=== PATIENT | male | born 1995 | race African-American/Black ===

== ENCOUNTER 2016-07-13 12:36 | Inpatient (IN) | payer OTHER ==
--- NOTE | ~2016-07-13 | DS ---
Unit #: [id number] #: [id number] Patient: KANDY MENON [id number] [facility] [address] [place] [address] [id number] I MR#: [id number] NAME: KANDY MENON ROOM: 66 Age: 20 Sex: M Admission Date: 07/13/2016 : 1995 Discharge Date: 07/17/2016 Attending Physician: Will Sauceda M.D. Primary Care Physician: Generic Doctor Not In System DISCHARGE SUMMARY REASON FOR ADMISSION Depression and suicidal ideation. DIAGNOSTIC STUDIES LABORATORY RESULTS: Unremarkable except ALT 50. HOSPITAL COURSE The patient was admitted to inpatient unit on 07/13/2016 and discharged on 07/17/2016. The patient was treated on the inpatient unit with group therapy, individual therapy, medication management, structured milieu, behavior modification. The patient responded well with the above modalities of treatment, compliant with medication. Subsequently, the patient was discharged with a plan to follow up in outpatient program. DISCHARGE MEDICATIONS Zoloft 50 mg at bedtime for depression, Zyprexa 20 mg at bedtime for psychosis, trazodone 50 mg at bedtime for sleep. DISCHARGE DIAGNOSES Psychiatric: 1. Mood disorder, not otherwise specified, F32.9. 2. Cocaine use disorder, moderate, F14.20. Secondary diagnosis: Mild intellectual deficit. Medical diagnoses: Obesity and glaucoma. Stressors: Psychosocial stressors. DISCHARGE INSTRUCTIONS The patient to follow up in outpatient clinic as per executive secretary social welfare. CONDITION ON DISCHARGE The patient was pleasant and cooperative. Denied any psychotic symptom or any suicidal ideation. PROGNOSIS Guarded. DIET AND ACTIVITY As tolerated. Dictated by... Unit #: [id number] #: [id number] Patient: KANDY MENON Rosas EdouardC/destinyl TD: 07/17/2016 23:11 JOB #: [id number] DISCHARGE SUMMARY Page 1 of 1 X Will Sauceda MD X DISCHARGE SUMMARY
--- NOTE | ~2016-07-13 | PA ---
Unit #: [id number] #: [id number] Patient: GULSHAN MENON [id number] [facility] [address] [place] [address] [id number] I MR#: [id number] NAME: GULSHAN MENON ROOM: P266 Age: 20 Sex: M Admission Date: 07/13/2016 : 1995 Date of Assessment: 07/14/2016 Attending Physician: Will Sauceda M.D. Admitting Physician: Will Sauceda M.D. Primary Care Physician: Generic Doctor Not In System PSYCHIATRIC ASSESSMENT INFORMANTS The patient reliability, poor; chart reliability, good. CHIEF COMPLAINT Depression and aggression. HISTORY OF PRESENT ILLNESS Mr. Gulshan Menon is a 20-year-old male, seen on 2[facility]. The patient was diagnosed with a full scale IQ of 60, has a history of previous treatment as a child. The patient reported that he saw his mother, who is living in street and asked him for money. The patient told that he had no money and he got mad at himself. The patient reported that he wants to by jumping off the building. The patient left home about 3 days ago. The patient reported using cocaine. The patient reported that he is in trouble for his guardian and feels that he cannot go home. The patient was voicing suicidal ideation. The patient reported last use of cocaine 3 days ago. The patient is a poor historian, withdrawn, isolative, flat affect. The patient was guarded and paranoid, received treatment through [facility]. The patient is needing inpatient admission at this time for psychiatric stabilization. PAST PSYCHIATRIC HISTORY Remarkable for history of previous treatment at [facility] at age 16; outpatient services through [facility] for history of behavioral issues, problem with the anger and depression. FAMILY HISTORY AND SOCIAL HISTORY The patient has a guardian, full scale IQ of 60. No known history of any abuse. MEDICAL HISTORY Remarkable for obesity and glaucoma. MEDICATION HISTORY None. ALLERGIES No known drug allergies. SUBSTANCE ABUSE HISTORY History of cocaine abuse, last use 3 days ago, 4 dollars worth. REVIEW OF SYSTEMS Unit #: [id number] #: [id number] Patient: GULSHAN MENON HEENT: Eyes, clear. Ears, nose, mouth, and throat; clear. CARDIOVASCULAR: Unremarkable. RESPIRATORY: Unremarkable. GI: Unremarkable. : Unremarkable. SKIN: Unremarkable. LYMPH NODE: Unremarkable. NEUROLOGIC: Unremarkable. ENDOCRINE: Unremarkable. HEMATOLOGIC: Unremarkable. ALLERGIC/IMMUNOLOGIC: Unremarkable. MUSCULOSKELETAL: Muscle strength and tone, no atrophy or abnormal movement. Gait normal. MENTAL STATUS EXAMINATION CONSTITUTIONAL: Measurement of vital signs; temperature 98.5, pulse 70, respirations 18, oxygen saturation 98%, and blood pressure 123/67. Height 6 feet 1 inch and weight 326 pounds. GENERAL APPEARANCE: The patient dressed casually. The patient did not show any facial deformity. MUSCULOSKELETAL: Please see above. PSYCHIATRIC EXAMINATION Description of speech; loud, circumstantial. Description of thought process, circumstantial. Description of association; guarded, paranoid. Description of abnormal psychotic thinking; guarded, paranoid, attending to internal stimuli, problem with anger, mood lability, depression, suicidal ideation. Description of the patient's judgment: Concerning everyday activity, poor. Social situation, poor. Concerning psychiatric condition, poor. Complete mental status examination; oriented in time, place, and person. Recent and remote memory, fair. Attention span and concentration, fair. Language; able to name object, repeat phrases. Fund of knowledge; aware of current event, passive vocabulary intact. Mood and affect, sad and dysphoric. Insight and judgment, fair to poor. ASSETS AND LIABILITIES Assets; the patient is articulate, able to take care of his ADL. Liabilities; history of depression, suicidal ideation. ADMITTING DIAGNOSES Psychiatric: 1. Mood disorder, not otherwise specified, F32.9. 2. Cocaine use disorder, moderate, F14.20. Secondary diagnosis: Mild intellectual deficit. Medical diagnoses: Obesity, glaucoma. Stressors: Psychosocial stressors. PSYCHIATRIC PLAN, TREATMENT GOAL, AND DISCHARGE PLAN 1. Advised to admit the patient on the inpatient unit. Provide safe, supportive, and structured environment. 2. Ordered labs; CBC, CMP, UA, and UDS. 3. Precaution for aggression and self-harm. The patient is to attend all the programing on the inpatient unit. If needed, consider medication. Treatment goal is to attain euthymic mood, gain insight into his problem, Unit #: [id number] #: [id number] Patient: GULSHAN MENON and learn coping skills. 4. Discharge plan: Plan is to stabilize the patient and consider followup in outpatient program. ESTIMATED LENGTH OF STAY 5 days. Dictated by... Rosas Edouard/cheri TD: 07/14/2016 23:10 JOB #: [id number] PSYCHIATRIC ASSESSMENT Page 1 of 1 X Will Sauceda MD X PSYCHIATRIC ASSESSMENT
--- NOTE | ~2016-07-13 | HP ---
Unit #: [id number] #: [id number] Patient: GULSHAN MENON [id number] [place] [address] [id number] I MR#: [id number] NAME: GULSHAN MENON ROOM: P266 Age: 20 Sex: M Admission Date: 07/13/2016 : 1995 Attending Physician: Will Sauceda M.D. Admitting Physician: Will Sauceda M.D. Primary Care Physician: Generic Doctor Not In System HISTORY AND PHYSICAL HISTORY OF PRESENT ILLNESS Gulshan is a 20-year-old admitted to [address] [place] [address] because of his drug use. He has spent his last paycheck on cocaine. PAST MEDICAL HISTORY 1. History of illicit substance abuse. 2. Morbid obesity. 3. MR. 4. History of glaucoma. PAST SURGICAL HISTORY 1. Bilateral eye surgery. 2. Oral. ALLERGIES No known drug allergies. SOCIAL HISTORY He does not smoke or use alcohol. Admits to using cocaine on frequent basis and also smokes Spice frequently. FAMILY HISTORY Medically noncontributory. REVIEW OF SYSTEMS He does not answer all questions appropriately. There are no reports of nausea, vomiting, or diarrhea. He has had no cough or increased temperature. CURRENT MEDICATIONS 1. Vistaril p.r.n. 2. Trazodone p.r.n. 3. Nicotine patch 14 mg every day. 4. Milk of magnesia p.r.n. 5. Maalox p.r.n. 6. Tylenol p.r.n. PHYSICAL EXAMINATION GENERAL: Alert, morbidly obese, and in no apparent distress. VITAL SIGNS: Blood pressure 122/66, heart rate 70, respirations 16, temperature 98.6, weight 326 pounds, and height 6 feet, 1 inch. SKIN: Warm and dry without rash or lesion. HEENT: Normocephalic. TMs not viewed. Oral and nasal passages clear. Unit #: [id number] #: [id number] Patient: GULSHAN MENON Conjunctivae clear. PERRLA. EOMs intact. NECK: Supple without lymphadenopathy or thyromegaly. HEART: Regular rate and rhythm without murmur. LUNGS: Clear. ABDOMEN: Soft, nontender. : Not done. EXTREMITIES: No evidence of cyanosis, clubbing or edema. Moves all without focal deficit. NEUROLOGICAL: Grossly within normal limits. Cranial Nerves: Unable to complete extended exam. He does move all extremities without focal deficit, hand senior php developer is equal, and gait is normal. IMPRESSION Psychiatric admission. RECOMMENDATIONS PSYCHIATRIC: Per psychiatrist. MEDICAL: I see no contraindication to participating in facility's activities. MEDICAL PROGNOSIS Good. MEDICAL CONDITION Stable. Dictated by... Sabrina Gaspar P.A.-C. for Rosas Groves/imelda TD: 07/14/2016 06:59 JOB #: [id number] HISTORY AND PHYSICAL Page 1 of 1 X Sabrina Gaspar X HISTORY AND PHYSICAL
--- NOTE | ~2016-07-13 | PN ---
Unit #: [id number] #: [id number] Patient: GULSHAN MENON [id number] [facility] [address] [place] [address] [id number] I MR#: [id number] NAME: GULSHAN MENON ROOM: 66 Age: 20 Sex: M Admission Date: 07/13/2016 : 1995 Attending Physician: Will Sauceda M.D. Admitting Physician: Will Sauceda M.D. Primary Care Physician: Generic Doctor Not In System [facility] PROGRESS NOTES DATE OF SERVICE 07/16/2016 DISCUSSION Gulshan is a 20-year-old male seen on 07/16/2016. Patient interviewed, chart reviewed, I obtained information from nursing staff. Patient was able to maintain safe behavior, compliant with medication, able to participate in group, no aggression, somewhat guarded. COMPLETE REVIEW OF SYSTEMS Unremarkable. MENTAL STATUS EXAMINATION GENERAL APPEARANCE: Patient dressed casually. Tall, well built. ATTENTION SPAN AND CONCENTRATION: Poor. Oriented in place and person. MOOD AND AFFECT: Labile. SPEECH: Rapid. THOUGHT PROCESS: Circumstantial, guarded. Denied any suicidal ideation but guarded, withdrawn, isolative. RECENT AND REMOTE MEMORY: Poor. INSIGHT AND JUDGMENT: Poor. DIAGNOSES Mood disorder, NOS Anxiety disorder, NOS Psychosis, NOS ASSESSMENT/PLAN Advised to continue with current medication and therapeutic protocol. If needed, consider further adjustment on medication with the plan to consider discharge this week and follow up in outpatient program. Dictated by... Rosas Edouard/serafin TD: 07/17/2016 00:35 JOB #: [id number] Unit #: [id number] #: [id number] Patient: GULSHAN MENON [facility] PROGRESS NOTES Page 1 of 1 X Will Sauceda MD X PROGRESS NOTE
--- NOTE | ~2016-07-13 | PN ---
Unit #: [id number] #: [id number] Patient: GULSHAN MENON [id number] [facility] [address] [place] [address] [id number] I MR#: [id number] NAME: GULSHAN MENON ROOM: 66 Age: 20 Sex: M Admission Date: 07/13/2016 : 1995 Attending Physician: Will Sauceda M.D. Admitting Physician: Will Sauceda M.D. Primary Care Physician: Generic Doctor Not In System [facility] PROGRESS NOTES DATE 07/15/2016 DISCUSSION Gulshan is a 20-year-old male, seen on 07/15/2016. The patient interviewed, chart reviewed, and obtained information from the nursing staff. The patient's manager social is currently working on appropriate placement for patient. The patient has a history of MR, isolative, guarded, flat affect. Hygiene and grooming poor, somewhat agitated and intrusive, and impulsive. The patient is focused on discharge, currently on Zoloft-Zyprexa combination. REVIEW OF SYSTEMS Complete review of systems unremarkable. MENTAL STATUS EXAMINATION General appearance: Patient dressed casually. Attention span and concentration, poor. Orientation to self. Mood and affect, labile. Speech, monotone, loud. Thought process, circumstantial. The patient denied any suicidal ideation but guarded, paranoid. Recent and remote memory, poor. Insight and judgment, poor. DIAGNOSIS Mood disorder, NOS. ASSESSMENT/PLAN Advised to continue with the current medication and therapeutic protocol and if needed consider adjustment of medication. Dictated by... Rosas Edouard/shahla TD: 07/16/2016 09:52 JOB #: [id number] Unit #: [id number] #: [id number] Patient: GULSHAN MENON [facility] PROGRESS NOTES Page 1 of 1 X Will Sauceda MD PROGRESS NOTE
--- NOTE | ~2016-07-13 | PN ---
Unit #: [id number] #: [id number] Patient: GULSHAN MENON [id number] [facility] [address] [place] [address] [id number] I MR#: [id number] NAME: GULSHAN MENON ROOM: P266 Age: 20 Sex: M Admission Date: 07/13/2016 : 1995 Attending Physician: Will Sauceda M.D. Admitting Physician: Will Sauceda M.D. Primary Care Physician: Generic Doctor Not In System [facility] PROGRESS NOTES DATE OF SERVICE: 07/14/2016 DISCUSSION Gulshan is a 20-year-old male, seen on 07/14/2016. The patient interviewed, chart reviewed, and obtained information from nursing staff. The patient was sad, dysphoric, flat affect. Mood was labile, guarded, paranoid, mood lability. The patient made poor eye contact, withdrawn, isolative. Complete review of systems unremarkable. MENTAL STATUS EXAMINATION General appearance, the patient dressed casually. Attention span and concentration, poor. Oriented in place and person. Mood and affect, labile. Speech, loud. Thought process; circumstantial, guarded. Denied any thoughts of harming self or others, but guarded. Recent and remote memory, poor. Insight and judgment, poor. DIAGNOSIS Bipolar mood disorder, not otherwise specified. ASSESSMENT AND PLAN Advised to continue with current medication and therapeutic protocol. If needed, consider further adjustment of medication with a plan to start the patient on trazodone 75 mg q.h.s. p.r.n. for sleep and Vistaril 50 mg q.h.s. p.r.n. for anxiety. Advised to start the patient on Zyprexa 10 mg at bedtime and Prozac 10 mg at bedtime. If needed, consider further adjustment of medication. Dictated by... Will Sauceda M.D. AMY/chrei TD: 07/14/2016 15:31 JOB #: [id number] Unit #: [id number] #: [id number] Patient: GULSHAN MENON PROGRESS NOTES Page 1 of 1 X Will Sauceda MD PROGRESS NOTE
[~2016-07-13 12:36] MED LIST: ADDERALL PO
[2016-07-17 09:47] LABS: URINE APPEARANCE CLEAR; URINE BILIRUBIN NEG (NEG); URINE BLOOD NEG (NEG); URINE COLOR YELLOW; URINE GLUCOSE NEG (NEG); URINE KETONE NEG (NEG); URINE LEUKOCYTE ESTERASE NEG (NEG); URINE NITRATE NEG (NEG); URINE PH 7.5 (5-8); URINE PROTEIN NEG (NEG); URINE SPECIFIC GRAVITY 1.011 (1.003-1.035)
== END 2016-07-17 11:40 | disposition home or self-care (01) | DRG 885 ==
LOC: POF 12:36 → P2L 12:58
PROVIDERS: Psychiatry & Neurology Psychiatry
DX: F39 Unspecified mood [affective] disorder (principal); F14.20 Cocaine dependence, uncomplicated; R45.851 Suicidal ideations; Z68.41 Body mass index [BMI] 40.0-44.9, adult; F31.9 Bipolar disorder, unspecified; F41.9 Anxiety disorder, unspecified; F29 Unspecified psychosis not due to a substance or known physiological condition; H40.9 Unspecified glaucoma; E66.9 Obesity, unspecified
CPT/HCPCS: 81003

== ENCOUNTER 2016-08-31 01:00 | Inpatient (IN) | payer OTHER ==
--- NOTE | ~2016-08-31 | PN ---
Unit #: [id number] #: [id number] Patient: KANDY MENON [id number] [facility] [address] [place] [address] [id number] I MR#: [id number] NAME: KANDY MENON ROOM: 64 Age: 21 Sex: M Admission Date: 08/31/2016 : 1995 Attending Physician: Will Sauceda M.D. Admitting Physician: Will Sauceda M.D. Primary Care Physician: Generic Doctor Not In System [facility] PROGRESS NOTES DATE 09/03/2016 DISCUSSION Mr. Gaffney is a 21-year-old male, seen on 09/03/2016. The patient interviewed, chart reviewed, and obtained information from the nursing staff. The patient withdrawn, isolative, flat affect, but denied any thoughts of harming self or others, compliant with medication. REVIEW OF SYSTEMS Complete review of systems unremarkable. MENTAL STATUS EXAMINATION General appearance: Patient dressed casually, morbidly obese. Attention span and concentration, poor. Oriented in place and person. Mood and affect, labile. Speech, monotone. Thought process, concrete. The patient denied any thoughts of harming self or others but somewhat guarded, withdrawn, isolative. Recent and remote memory, poor. Insight and judgment, poor. DIAGNOSIS Bipolar mood disorder, NOS. ASSESSMENT/PLAN Advised to continue with the current medication and therapeutic protocol, and if needed consider further adjustment of medication. Dictated by... Rosas Edouard/shahla TD: 09/04/2016 08:25 JOB #: [id number] Unit #: [id number] #: [id number] Patient: KANDY MENON [facility] PROGRESS NOTES Page 1 of 1 X Will Sauceda MD PROGRESS NOTE
--- NOTE | ~2016-08-31 | PN ---
Unit #: [id number] #: [id number] Patient: GULSHAN MENON [id number] [facility] [address] [place] [address] [id number] I MR#: [id number] NAME: GULSHAN MENON ROOM: 64 Age: 21 Sex: M Admission Date: 08/31/2016 : 1995 Attending Physician: Will Sauceda M.D. Admitting Physician: Will Sauceda M.D. Primary Care Physician: Generic Doctor Not In System [facility] PROGRESS NOTES DATE OF SERVICE 09/04/16 DISCUSSION Gulshan is a 21-year-old -[place] male seen on 09/04/16. Patient dressed casually, hygiene and grooming fair. Flat affect, sad, dysphoric, withdrawn, isolative, guarded. Patient seclusive, sad, depressed but denied any thoughts of harming self or others. Patient's elementary school social worker mentioned currently working on SCL placement. COMPLETE REVIEW OF SYSTEMS Unremarkable. MENTAL STATUS EXAMINATION GENERAL APPEARANCE: Patient morbidly obese, dressed casually. ATTENTION SPAN AND CONCENTRATION: Fair. Oriented in place and person. MOOD AND AFFECT: Sad, depressed. SPEECH: Monotone. THOUGHT PROCESS: [place]. Patient denied any thoughts of harming self or others, but guarded. RECENT AND REMOTE MEMORY: Poor. INSIGHT AND JUDGMENT: Poor. DIAGNOSIS Bipolar mood disorder, NOS ASSESSMENT/PLAN Advised to continue with current medication and therapeutic protocol. If needed, consider further adjustment in medication. Dictated by... Rosas Edouard/serafin TD: 09/05/2016 13:19 JOB #: [id number] Unit #: [id number] #: [id number] Patient: GULSHAN MENON [facility] PROGRESS NOTES Page 1 of 1 X Will Sauceda MD PROGRESS NOTE
--- NOTE | ~2016-08-31 | PN ---
Unit #: [id number] #: [id number] Patient: GULSHAN MENON [id number] [facility] [address] [place] [address] [id number] MR#: [id number] NAME: GULSHAN MENON ROOM: P264 Age: 21 Sex: M Admission Date: 08/31/2016 : 1995 Attending Physician: Will Sauceda M.D. Admitting Physician: Will Sauceda M.D. Primary Care Physician: Generic Doctor Not In System [facility] PROGRESS NOTES DATE OF SERVICE: 09/07/2016 DISCUSSION Gulshan is a 21-year-old male, seen on 09/07/2016. The patient interviewed, chart reviewed, obtained information from nursing staff. The patient waiting to go to nursing skill placement. Mood was sad, dysphoric, withdrawn, flat affect, but no aggressive behavior. Tolerating medication fairly well. Vital signs stable; 98.8, 66, 139/79. Complete review of systems unremarkable. MENTAL STATUS EXAMINATION General appearance, the patient dressed casually. Attention span and concentration, fair. Oriented in place and person. Mood and affect, labile. Speech, monotone. Thought process, concrete. The patient denied any thoughts of harming self or others, but guarded. Recent and remote memory, poor. Insight and judgment, poor. DIAGNOSIS Bipolar mood disorder, not otherwise specified. ASSESSMENT AND PLAN Advised to continue with current medication and therapeutic protocol. If needed, consider further adjustment of medication. Dictated by... Rosas Edouard/cheri TD: 09/07/2016 16:39 JOB #: [id number] Unit #: [id number] #: [id number] Patient: GULSHAN MENON [facility] PROGRESS NOTES Page 1 of 1 X Will Sauceda MD PROGRESS NOTE
--- NOTE | ~2016-08-31 | PA ---
Unit #: [id number] #: [id number] Patient: GULSHAN MENON [id number] [facility] [address] [place] [address] [id number] I MR#: [id number] NAME: GULSHAN MENON ROOM: P266 Age: 21 Sex: M Admission Date: 08/31/2016 : 1995 Date of Assessment: 08/31/2016 Attending Physician: Will Sauceda M.D. Admitting Physician: Will Sauceda M.D. Primary Care Physician: Generic Doctor Not In System PSYCHIATRIC ASSESSMENT DATE OF SERVICE 08/31/2016. INFORMANTS The patient's reliability, fair; chart reliability, good. CHIEF COMPLAINT Suicidal ideation. HISTORY OF PRESENT ILLNESS Gulshan Menon is a 21-year-old male, presented with suicidal ideation. The patient reported thinking about cutting himself. The patient denied any access to weapon. The patient denied any other complaints. The patient reported using 3 joints of spice in the last 24 hours. The patient presented with sleepy, awakened multiple times. The patient denied any use of other substances, currently homeless, reported suicidal ideation. PAST PSYCHIATRIC HISTORY Remarkable for history of previous treatment at [facility] at age 16, outpatient services through [facility], problem with anger and depression. Last admission in 06/2016. FAMILY HISTORY AND SOCIAL HISTORY The patient has a guardian. The patient has a full scale IQ of 60. No history of any abuse. MEDICAL HISTORY Remarkable for obesity and glaucoma. MEDICATIONS None. ALLERGIES No known drug allergies. SUBSTANCE ABUSE HISTORY The patient has a history of cocaine abuse, last use recently according to the intake reports. REVIEW OF SYSTEMS HEENT: Eyes, clear. Ears, nose, mouth, and throat; clear. CARDIOVASCULAR: Unremarkable. Unit #: [id number] #: [id number] Patient: GULSHAN MENON RESPIRATORY: Unremarkable. GI: Unremarkable. : Unremarkable. SKIN: Unremarkable. LYMPH NODE: Unremarkable. NEUROLOGIC: Unremarkable. ENDOCRINE: Unremarkable. HEMATOLOGIC: Unremarkable. ALLERGIC/IMMUNOLOGIC: Unremarkable. MUSCULOSKELETAL: Muscle strength and tone, no atrophy or abnormal movement. Gait normal. MENTAL STATUS EXAMINATION CONSTITUTIONAL: Measurement of vital signs; temperature 97.9, heart rate 76, respirations 18, oxygen saturation 98%, and blood pressure 159/87. Height 6 feet 1 inch and weight 350 pounds. GENERAL APPEARANCE: The patient dressed casually. No facial deformity noted. MUSCULOSKELETAL: Please see above. PSYCHIATRIC EXAMINATION Description of speech, loud. Description of thought process, circumstantial. Description of association; guarded, paranoid, attending to internal stimuli, problem with anger, temper, mood lability, depression, but denied any thoughts of harming self or others. The patient reported having suicidal ideation. Description of the patient's judgment; concerning everyday activity, poor. Social situation, poor. Concerning psychiatric condition, poor. Complete mental status examination; oriented in time, place, and person. Recent and remote memory, fair. Attention span and concentration, fair. Language, able to name object and repeat phrases. Fund of knowledge, fair. Vocabulary, intact. Mood and affect, sad and dysphoric. Insight and judgment, fair to poor. ASSETS AND LIABILITIES Assets; the patient is articulate, able to take care of his ADL. Liability; history of depression, suicidal ideation, substance abuse. ADMITTING DIAGNOSES Psychiatric: Major depressive disorder, recurrent, severe, F33.2; history of cocaine abuse disorder, moderate, F14.20; history of synthetic drug abuse, F19.20. Secondary diagnosis: Mild intellectual deficit. Medical diagnoses: Obesity and glaucoma. Stressors: Psychosocial stressor. PSYCHIATRIC PLAN AND TREATMENT GOAL 1. Advised to admit the patient on the inpatient unit. Provide safe, supportive, and structured environment. 2. Ordered labs; CBC, CMP, UA, and UDS. 3. Precaution for aggression, self-harm, psychosis. 4. The patient to attend all the programing on the inpatient unit including group therapy, expressive therapy, chemical dependency group. The patient to be monitored closely. Advised Zyprexa 10 mg b.i.d. for Unit #: [id number] #: [id number] Patient: GULSHAN MENON psychosis. The patient to continue with Zoloft and Desyrel. If needed, consider further adjustment of medication. Treatment goal to attain euthymic mood, gain insight into his problem, and learn coping skills. DISCHARGE PLAN Plan to stabilize the patient and consider followup in outpatient program. ESTIMATED LENGTH OF STAY 5 days. Dictated by... Rosas Edouard TD: 08/31/2016 23:02 JOB #: [id number] PSYCHIATRIC ASSESSMENT Page 1 of 1 X Will Sauceda MD PSYCHIATRIC ASSESSMENT
--- NOTE | ~2016-08-31 | PN ---
Unit #: [id number] #: [id number] Patient: GULSHAN MENON [id number] [facility] [address] [place] [address] [id number] I MR#: [id number] NAME: GULSHAN MENON ROOM: 64 Age: 21 Sex: M Admission Date: 08/31/2016 : 1995 Attending Physician: Will Sauceda M.D. Admitting Physician: Will Sauceda M.D. Primary Care Physician: Generic Doctor Not In System [facility] PROGRESS NOTES DATE 09/01/2016 DISCUSSION Gulshan Menon is a 21-year-old morbidly obese male seen on 09/01/2016. Patient adjusting fairly well to unit. Mood sad, dysphoric, labile, flat affect, withdrawn, isolative, guarded. Tolerating medication fairly well. Patient denied any complaints. Able to maintain safe behavior, withdrawn, isolative. Complete review of system unremarkable. MENTAL STATUS EXAMINATION General appearance, patient dressed casually, moderately obese. Attention span, concentration poor. Oriented in place and person. Mood and affect labile. Speech monotone. Thought process concrete. Patient denied any thoughts of harming self or others but sad, dysphoric, withdrawn, isolative. Recent and remote memory poor. Insight and judgement poor. DIAGNOSIS Bipolar mood disorder NOS. ASSESSMENT/PLAN Advised to continue with current medication, Zyprexa 20 mg at bedtime, Zoloft 50 mg at bedtime, Desyrel 50 mg at bedtime. If needed, consider further adjustment of medication Dictated by... Will Sauceda M.D. AMY/laly TD: 09/02/2016 18:59 JOB #: [id number] Unit #: [id number] #: [id number] Patient: GULSHAN MENON [facility] PROGRESS NOTES Page 1 of 1 X Will Sauceda MD PROGRESS NOTE
--- NOTE | ~2016-08-31 | HP ---
Unit #: [id number] #: [id number] Patient: GULSHAN MENON [id number] [place] [address] [id number] I MR#: [id number] NAME: GULSHAN MENON ROOM: P266 Age: 21 Sex: M Admission Date: 08/31/2016 : 1995 Attending Physician: Will Sauceda M.D. Admitting Physician: Will Sauceda M.D. Primary Care Physician: Generic Doctor Not In System HISTORY AND PHYSICAL HISTORY OF PRESENT ILLNESS Gulshan is a 21 year old admitted to [address] [place] [address] because of his continued poly substance abuse which includes cocaine and spice. He has had other admissions to this facility for the same. PAST MEDICAL HISTORY 1. History of illicit substance abuse. 2. Morbid obesity. 3. Glaucoma (?). 4. MR. PAST SURGICAL HISTORY 1. Bilateral eye surgery. 2. Oral. ALLERGIES No known drug allergies. SOCIAL HISTORY He does not smoke or use alcohol. Has a history of illicit substance abuse. FAMILY HISTORY Medically noncontributory. REVIEW OF SYSTEMS He does not answer questions appropriately. There are no reports of nausea, vomiting, or diarrhea. He has had no cough or increased temperature. CURRENT MEDICATIONS 1. Zoloft 50 mg q.h.s. 2. Zyprexa 10 mg q.h.s. 3. Desyrel 50 mg q.h.s. 4. Milk of Magnesia p.r.n. 5. Maalox p.r.n. 6. Tylenol p.r.n. PHYSICAL EXAMINATION GENERAL: Alert, morbidly obese, in no apparent distress. VITAL SIGNS: Blood pressure 160/86, heart rate 80, respirations 16, temperature 98.6. Unit #: [id number] #: [id number] Patient: GULSHAN MENON WEIGHT: 350 pounds. HEIGHT: 6'1". SKIN: Warm and dry without rash or lesion. HEENT: Normocephalic. TMs not viewed. Oral and nasal passages clear. Conjunctivae clear. Pupils equal, round and reactive to light and accommodation. Extraocular movements intact. NECK: Supple without lymphadenopathy or thyromegaly. HEART: Regular rate and rhythm without murmur. LUNGS: Clear. ABDOMEN: Soft, nontender. : Not done. EXTREMITIES: No evidence of cyanosis, clubbing or edema. Moves all extremities without focal deficit. NEUROLOGICAL: Unable to complete extended exam. He does move all extremities without focal deficit. Hand toll lineman is equal and gait is normal. IMPRESSION Psychiatric admission. RECOMMENDATIONS PSYCHIATRIC: Per psychiatrist. MEDICAL: I see no contraindications to participating in facility's activities. MEDICAL PROGNOSIS Good. MEDICAL CONDITION Stable. Dictated by... Sabrina Gaspar P.A.-C. for [place]/kassandra TD: 09/01/2016 00:57 JOB #: [id number] HISTORY AND PHYSICAL Page 1 of 1 X Sabrina Gaspar PA X HISTORY AND PHYSICAL
--- NOTE | ~2016-08-31 | PN ---
Unit #: [id number] #: [id number] Patient: GULSHAN MENON [id number] [facility] [address] [place] [address] [id number] I MR#: [id number] NAME: GULSHAN MENON ROOM: P264 Age: 21 Sex: M Admission Date: 08/31/2016 : 1995 Attending Physician: Will Sauceda M.D. Admitting Physician: Will Sauceda M.D. Primary Care Physician: Generic Doctor Not In System [facility] PROGRESS NOTES DATE OF SERVICE: 09/08/2016 DISCUSSION Gulshan is a 21-year-old male, seen on 09/08/2016. The patient was compliant, cooperative, isolative, guarded. No aggressive behavior. REVIEW OF SYSTEMS A complete review of systems is unremarkable. MENTAL STATUS EXAMINATION General appearance; the patient dressed casually. Attention span and concentration, fair. Oriented in place and person. Mood and affect, labile. Speech, monotone. Thought process, concrete. The patient denied any thoughts of harming self or others. Recent and remote memory, poor. Insight and judgment, poor. DIAGNOSIS Bipolar mood disorder, not otherwise specified. ASSESSMENT AND PLAN Advised to continue with current medication and therapeutic protocol. If needed, consider further adjustment of medication. Dictated by... [place] Ed[place]ard/cheri TD: 09/09/2016 12:49 JOB #: [id number] [facility] PROGRESS NOTES Page 1 of 1 X Will Sauceda MD PROGRESS NOTE
--- NOTE | ~2016-08-31 | DS ---
Unit #: [id number] #: [id number] Patient: KANDY MENON [id number] [facility] [address] [place] [address] [id number] I MR#: [id number] NAME: KANDY MENON ROOM: 64 Age: 21 Sex: M Admission Date: 08/31/2016 : 1995 Discharge Date: 09/09/2016 Attending Physician: Will Sauceda M.D. Primary Care Physician: Generic Doctor Not In System DISCHARGE SUMMARY REASON FOR ADMISSION Depression and aggression. DIAGNOSTIC STUDIES LABORATORY RESULTS: Unremarkable. HOSPITAL COURSE The patient was admitted to inpatient unit on 08/31/2016 and discharged on 09/09/2016. The patient was treated on the inpatient unit with group therapy, individual therapy, and medication management. The patient was responsive to treatment. Subsequently, the patient was discharged with a plan to follow up in outpatient program. DISCHARGE MEDICATIONS Trazodone 50 mg at bedtime for sleep, Zoloft 50 mg at bedtime for depression, Zyprexa 20 mg at bedtime for mood stabilization. DISCHARGE DIAGNOSES Psychiatric: Bipolar mood disorder, recurrent, depressed, F31.9; cocaine use disorder, moderate, F14.20. Secondary diagnosis: Mild intellectual deficit. Medical diagnosis: Obesity, glaucoma. Stressors: Psychosocial stressor. DISCHARGE INSTRUCTIONS The patient to follow up in outpatient clinic as per social services director. CONDITION ON DISCHARGE The patient was pleasant and cooperative. Denied any psychotic symptom or any suicidal ideation. PROGNOSIS Guarded. DIET AND ACTIVITY As tolerated. Dictated by... Will Sauceda M.D. Unit #: [id number] #: [id number] Patient: KANDY MENON SZC/modl TD: 09/09/2016 17:44 JOB #: [id number] DISCHARGE SUMMARY Page 1 of 1 X Will Sauceda MD X DISCHARGE SUMMARY
--- NOTE | ~2016-08-31 | PN ---
Unit #: [id number] #: [id number] Patient: KANDY MENON [id number] [facility] [address] [place] [address] [id number] MR#: [id number] NAME: KANYD MENON ROOM: 64 Age: 21 Sex: M Admission Date: 08/31/2016 : 1995 Attending Physician: Will Sauceda M.D. Admitting Physician: Will Sauceda M.D. Primary Care Physician: Generic Doctor Not In System [facility] PROGRESS NOTES DATE 09/06/2016 DISCUSSION Mr. Gaffney is a 21-year-old male. The patient interviewed, chart reviewed, and obtained information from nursing staff. The patient appeared compliant and cooperative. Sad, dysphoric, withdrawn, isolative and guarded, who denied any thoughts of harming self or others. REVIEW OF SYSTEMS Complete review of system unremarkable. MENTAL STATUS EXAMINATION General appearance, the patient dressed casually. Attention span and concentration, fair. Oriented in place and person. Mood and affect, labile. Speech, monotone. Thought process, concrete. The patient denied any thoughts of harming self or others, but guarded. Recent and remote memory, poor. Insight and judgment, poor. DIAGNOSES Bipolar mood disorder, NOS. ASSESSMENT AND PLAN Advised to continue with current medication and therapeutic protocol. If needed, consider further adjustment of medication. Dictated by... [place] Edouard/rebeca TD: 09/07/2016 12:17 JOB #: [id number] Unit #: [id number] #: [id number] Patient: KANDY MENON [facility] PROGRESS NOT[facility] Page 1 of 1 X Will Sauceda MD PROGRESS NOTE
--- NOTE | ~2016-08-31 | PN ---
Unit #: [id number] #: [id number] Patient: GULSHAN MENON [id number] [facility] [address] [place] [address] [id number] I MR#: [id number] NAME: GULSHAN MENON ROOM: P264 Age: 21 Sex: M Admission Date: 08/31/2016 : 1995 Attending Physician: Will Sauceda M.D. Admitting Physician: Will Sauceda M.D. Primary Care Physician: Generic Doctor Not In System [facility] PROGRESS NOTES DATE 09/02/2016 DISCUSSION Gulshan is a 21-year-old moderately obese male seen on 09/02/2016. The patient continues to be withdrawn, isolative, guarded, sad, depressed, paranoid, passive SI. Compliant with medication out of milieu. Complete review of systems unremarkable. MENTAL STATUS EXAMINATION General appearance, the patient dressed casually. Attention span and concentration poor. Oriented to place and person. Mood and affect sad, dysphoric, flat, withdrawn, isolative. Passive suicidal ideation. Recent and remote memory poor. Insight and judgement poor. DIAGNOSES 1. Major depressive disorder recurrent severe. 2. Mild intellectual deficit. ASSESSMENT/PLAN Advise to continue with current medication and therapeutic protocol. If needed consider further adjustment of medication. Dictated by... Rosas Eoduard/kassandra TD: 09/04/2016 04:36 JOB #: [id number] [facility] PROGRESS NOTES Page 1 of 1 X Will Sauceda MD PROGRESS NOTE
--- NOTE | ~2016-08-31 | PN ---
Unit #: [id number] #: [id number] Patient: GULSHAN MENON [id number] [facility] [address] [place] [address] [id number] I MR#: [id number] NAME: GULSHAN MENON ROOM: 64 Age: 21 Sex: M Admission Date: 08/31/2016 : 1995 Attending Physician: Will Sauceda M.D. Admitting Physician: Will Sauceda M.D. Primary Care Physician: Generic Doctor Not In System [facility] PROGRESS NOTES DATE 09/05/2016 DISCUSSION Gulshan Menon is a 21-year-old male seen on 09/05/2016 and (1) guarded but no aggressive behavior. Compliant with medication. Maintained a safe behavior on the unit. Overall having a good shift, withdrawn, isolative, now guarded. REVIEW OF SYSTEMS Complete review of system unremarkable. MENTAL STATUS EXAMINATION General appearance, the patient dressed casually. Attention span and concentration, fair. Oriented in place and person. Mood and affect, sad and dysphoric, flat. Thought process, concrete. The patient denied any thoughts of harming self or others, but guarded and withdrawn. Passive SI. Recent and remote memory, poor. Insight and judgment, poor. DIAGNOSES Bipolar mood disorder, NOS. ASSESSMENT AND PLAN Advised to continue with current medication and therapeutic protocol. If needed, consider further adjustment of medication. Dictated by... [place] Edouard/rebeca TD: 09/07/2016 12:01 JOB #: [id number] Unit #: [id number] #: [id number] Patient: GULSHAN MENON [facility] PROGR[facility] NOT[facility] Page 1 of 1 X Will Sauceda MD PROGRESS NOTE
[2016-09-05 11:32] LABS: URINE APPEARANCE CLEAR; URINE BILIRUBIN NEG (NEG); URINE BLOOD NEG (NEG); URINE COLOR YELLOW; URINE GLUCOSE NEG (NEG); URINE KETONE NEG (NEG); URINE LEUKOCYTE ESTERASE NEG (NEG); URINE NITRATE NEG (NEG); URINE PH 6.5 (5-8); URINE PROTEIN NEG (NEG)
== END 2016-09-09 14:30 | disposition home or self-care (01) | DRG 885 ==
LOC: P2L 10:14 → POF 10:14 → P2L 11:28
PROVIDERS: Psychiatry & Neurology Psychiatry
DX: F31.9 Bipolar disorder, unspecified (principal); E66.01 Morbid (severe) obesity due to excess calories; H40.9 Unspecified glaucoma
CPT/HCPCS: 81003

== ENCOUNTER 2016-11-10 04:00 | Inpatient (IN) | payer OTHER ==
[~2016-11-10] VITALS: Ht 185.4 cm; Wt 158.8 kg
--- NOTE | ~2016-11-10 | PN ---
Unit #: [id number] #: [id number] Patient: GULSHAN MENON [id number] [facility] [address] [place] [address] [id number] I MR#: [id number] NAME: GULSHAN MENON ROOM: P212 Age: 21 Sex: M Admission Date: 11/10/2016 : 1995 Attending Physician: Will Sauceda M.D. Admitting Physician: Will Sauceda M.D. Primary Care Physician: Generic Doctor Not In System [facility] PROGRESS NOTES DATE OF SERVICE 11/11/2016 DISCUSSION Gulshan is a 21-year-old male seen on 11/11/2016. Patient interviewed, chart reviewed. Obtained information from nursing staff. Patient was compliant and cooperative. Mood sad, dysphoric, withdrawn, isolative, guarded. Complete review of systems unremarkable. MENTAL STATUS EXAMINATION General appearance, patient dressed casually. Morbidly obese. Attention span and concentration fair. Oriented to place and person. Mood and affect sad, depressed. Speech monotone. Thought process concrete. Patient reported having suicidal ideation, withdrawn, seclusive. Recent and remote memory poor. Insight and judgement poor. DIAGNOSES Major depressive disorder recurrent severe. ASSESSMENT/PLAN Advise to continue with current medication and therapeutic protocol. If needed consider further adjustment of medication if needed. Dictated by... [place]/kassandra TD: 11/12/2016 03:19 JOB #: [id number] [facility] PROGRESS NOTES Page 1 of 1 X Will Sauceda MD PROGRESS NOTE
--- NOTE | ~2016-11-10 | HP ---
Unit #: [id number] #: [id number] Patient: GULSHAN MENON [id number] [place] [address] [id number] I MR#: [id number] NAME: GULSHAN MENON ROOM: P212 Age: 21 Sex: M Admission Date: 11/10/2016 : 1995 Attending Physician: Will Sauceda M.D. Admitting Physician: Will Sauceda M.D. Primary Care Physician: Generic Doctor Not In System HISTORY AND PHYSICAL HISTORY OF PRESENT ILLNESS Gulshan is a 21 year old admitted to [address] [place] [address] because of his continued illicit substance abuse. He has had numerous admissions to this facility for the same. He is a poor historian so his history is taken from his chart. PAST MEDICAL HISTORY 1. Morbid obesity. 2. History of illicit substance abuse. 3. Glaucoma. 4. MR. PAST SURGICAL HISTORY 1. Bilateral eye surgery. 2. Oral. ALLERGIES No known drug allergies. SOCIAL HISTORY He does not smoke or use alcohol. Has a history of illicit substance abuse. FAMILY HISTORY Medically noncontributory. REVIEW OF SYSTEMS He does not answer questions appropriately. There were no reports of nausea, vomiting or diarrhea. He has had no cough or increased temperature. CURRENT MEDICATIONS 1. Zyprexa Zydis 20 mg daily. 2. Zoloft 50 mg q.h.s. 3. Desyrel 50 mg q.h.s. 4. Milk of Magnesia p.r.n. 5. Maalox p.r.n. 6. Tylenol p.r.n. PHYSICAL EXAMINATION GENERAL: Alert, morbidly obese, in no apparent distress. VITAL SIGNS: Blood pressure 152/82, heart rate 82, respirations 16, temperature 98.6. Unit #: [id number] #: [id number] Patient: GULSHAN MENON WEIGHT: 350. HEIGHT: 6 feet 1 inch. SKIN: Warm and dry. He has rash and evidence of excoriation under his arms. HEENT: Normocephalic. TMs not viewed. Oral and nasal passages clear. Conjunctivae clear. PERRLA. EOMs intact. NECK: Supple without lymphadenopathy or thyromegaly. HEART: Regular rate and rhythm without murmur. LUNGS: Clear. ABDOMEN: Soft, nontender. : Not done. EXTREMITIES: No evidence of cyanosis, clubbing or edema. Moves all without focal deficit. NEUROLOGICAL: Unable to complete extended exam. He does move all extremities without focal deficit. Hand judge clerk is equal and gait is normal. IMPRESSION Psychiatric admission. RECOMMENDATIONS PSYCHIATRIC: Per psychiatrist. MEDICAL: 1. See no contraindication to participate in facility's activities. 2. Gold Joshua powder to areas under his arms and skin folds. MEDICAL PROGNOSIS Good. MEDICAL CONDITION Stable. Dictated by... Sabrina Gaspar P.A.-C. for [place]/laly TD: 11/10/2016 16:33 JOB #: [id number] HISTORY AND PHYSICAL Page 1 of 1 X Sabrina Gaspar X HISTORY AND PHYSICAL
--- NOTE | ~2016-11-10 | DS ---
Unit #: [id number] #: [id number] Patient: KANDY MENON [id number] [facility] [address] [place] [address] [id number] I MR#: [id number] NAME: KANDY MENON ROOM: [facility] Age: 21 Sex: M Admission Date: 11/10/2016 : 1995 Discharge Date: 11/12/2016 Attending Physician: Will Sauceda M.D. Primary Care Physician: Generic Doctor Not In System DISCHARGE SUMMARY REASON FOR ADMISSION Suicidal ideation. DIAGNOSTIC STUDIES Laboratory data remarkable for glucose of 118. HOSPITAL COURSE The patient was admitted to the inpatient unit on November 10 and discharged on 11/12/2016. The patient was treated on the inpatient unit with group therapy, individual therapy, and medication management. The patient was responded to treatment and showed improvement. Subsequently, the patient was discharged with the plan to follow up in outpatient program. DISCHARGE DIAGNOSES Psychiatric: [place] I Bipolar mood disorder, NOS, F31.9. History of cocaine use disorder. History of synthetic use drugs. 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 [place] III Morbid obesity. Glaucoma. [place] IV Psychosocial stressors. [place] V INSTRUCTIONS TO PATIENT The patient is to follow up in outpatient clinic as well as social staff worker. DISCHARGE MEDICATIONS 1. Trazodone 50 mg at bedtime for sleep 2. Zoloft 50 mg at bedtime for mood symptoms 3. Zyprexa 20 mg at bedtime for mood stabilization CONDITION AT DISCHARGE The patient pleasant, cooperative, denied any psychotic symptoms or any suicidal ideation. PROGNOSIS Guarded. DIET AND ACTIVITY As tolerated. Unit #: [id number] #: [id number] Patient: KANDY MENON Dictated by... Rosas Edouard/shahla TD: 11/13/2016 07:24 JOB #: [id number] DISCHARGE SUMMARY Page 1 of 1 X Will Sauceda MD X DISCHARGE SUMMARY
--- NOTE | ~2016-11-10 | PA ---
Unit #: [id number] #: [id number] Patient: GULSHAN MENON [id number] [facility] [address] [place] [address] [id number] MR#: [id number] NAME: GULSHAN MENON ROOM: P212 Age: 21 Sex: M Admission Date: 11/10/2016 : 1995 Date of Assessment: 11/11/2016 Attending Physician: Will Sauceda M.D. Admitting Physician: Will Sauceda M.D. Primary Care Physician: Generic Doctor Not In System PSYCHIATRIC ASSESSMENT INFORMANTS The patient reliability, fair informant and chart reliability, good. CHIEF COMPLAINT Suicidal ideation. HISTORY OF PRESENT ILLNESS Gulshan Menon is a 21-year-old male, seen on , who presented with the above-mentioned complaint. The patient well known to us from his previous admission on 08/31/2016. The patient has a history of previous treatment at [facility] in 2012 and 2016 and outpatient through [facility]. The patient presented with suicidal ideation with a plan to cut himself with a knife. The patient reported that he got into an argument with his guardian and family member. The patient stated that he no longer wants to reside with his grandmother and that he has been living on the [facility] the last 2 weeks. The patient admitted to smoking a bag of spice. Denied any homicidal ideation, but reported having suicidal ideation. Needing inpatient admission at this time for psychiatric stabilization. PAST PSYCHIATRIC HISTORY Remarkable for history of previous treatment at [facility] in 2012 and 2016 and last admission on 08/31/2016. The patient also received services through [facility]. FAMILY HISTORY AND SOCIAL HISTORY The patient has a guardian. Full-scale IQ of 60. No history of any abuse. MEDICAL HISTORY Remarkable for history of obesity and glaucoma. MEDICATION HISTORY The patient is on Zyprexa, Zydis 20 mg daily, Zoloft 20 mg daily, and Desyrel 50 mg at bedtime. ALLERGIES No known drug allergies. SUBSTANCE ABUSE HISTORY The patient reported recent use of spice. REVIEW OF SYSTEMS HEENT: Eyes, clear. Ears, nose, mouth, and throat; clear. Unit #: [id number] #: [id number] Patient: GULSHAN MENON CARDIOVASCULAR: Unremarkable. RESPIRATORY: Unremarkable. GI: Unremarkable. : Unremarkable. SKIN: Unremarkable. LYMPH NODE: Unremarkable. NEUROLOGIC: Unremarkable. ENDOCRINE: Unremarkable. HEMATOLOGIC: Unremarkable. ALLERGIC/IMMUNOLOGIC: Unremarkable. MUSCULOSKELETAL: Muscle strength and tone, no atrophy or abnormal movement. Gait normal, except remarkable for morbid obesity. MENTAL STATUS EXAMINATION CONSTITUTIONAL: Measurement of vital signs; temperature 97.6, heart rate 66, respiratory rate 14, oxygen saturation 98%, and blood pressure 134/66. Height 6 feet 1 inch and weight 350 pounds. GENERAL APPEARANCE: The patient dressed casually, lying comfortably in bed. No facial deformity noted. MUSCULOSKELETAL: Please see above. PSYCHIATRIC EXAMINATION Description of speech; regular rate, normal volume, normal articulation, coherent. Description of thought process, goal directed. Description of association, intact. Description of abnormal psychotic thinking; the patient denied any hallucination or delusions, but mood lability, sad, depressed, and suicidal ideation. Description of the patient's judgment: Concerning everyday activity, poor. Social situation, poor. Concerning psychiatric condition, poor. Complete mental status examination; oriented in time, place, and person. Recent and remote memory, fair. Attention span and concentration, fair. Language, able to name object and repeat phrases. Fund of knowledge, aware of current event and passive vocabulary fair. Mood and affect, sad and dysphoric. Insight and judgment, fair to poor. ASSETS AND LIABILITIES Assets, the patient is articulate and able to take care of his ADL. Liability; history of depression, suicidal ideation, substance abuse, and mild MR. ADMITTING DIAGNOSES Psychiatric: Major depressive disorder, recurrent, severe, F33.2; history of cocaine use disorder; and history of synthetic drug use, F91.20. Secondary diagnosis: Mild intellectual deficit, full-scale IQ around 60. Medical diagnoses: Morbid obesity and glaucoma. Stressors: Psychosocial stressors. PSYCHIATRIC PLAN AND TREATMENT GOAL AND DISCHARGE PLAN 1. Advised to admit the patient on the inpatient unit. Provide safe, supportive, and structured environment. 2. Ordered labs; CBC, CMP, UA, and UDS. 3. Precaution for aggression and self-harm. 4. Advised to resume home medication. If needed, consider further adjustment of medication. Unit #: [id number] #: [id number] Patient: GULSHAN MENON. The patient to attend all the programing, group therapy, individual therapy, chemical dependency group. Treatment goal to attain euthymic mood, gain insight into his problem, and learn coping skills. DISCHARGE PLAN Plan to stabilize the patient and consider followup in outpatient program. ESTIMATED LENGTH OF STAY 5 to 7 days. Dictated by... Rosas Edouard/cheri TD: 11/11/2016 16:25 JOB #: [id number] PSYCHIATRIC ASSESSMENT Page 1 of 1 X Will Sauceda MD X PSYCHIATRIC ASSESSMENT
[2016-11-11 12:32] LABS: BASOPHIL% 0.7 % (0-2.5); EOSINOPHIL# 0.2 X10e3 (0-0.7); EOSINOPHIL% 4.9 % (0.0-7.0); HEMATOCRIT 43.4 % (38.0-50.0); HEMOGLOBIN 14.8 gm/dL (13.0-16.0); LYMPHOCYTE# 1.3 X10e3 (1.0-3.5); LYMPHOCYTE% 38.5 % (17.0-45.0); MEAN CELL VOLUME 89.7 FL (83-96); MEAN CORPUSCULAR HEMOGLOBIN 30.6 PG (28-34); MEAN CORPUSCULAR HGB CONC 34.1 g/dL (30-36); MEAN PLATELET VOLUME 9.1 FL (6.5-11.5); MONOCYTE# 0.3 X10e3 (0-1.0); NEUTROPHIL# 1.5 X10e3 (1.5-7.1); NEUTROPHIL% 45.9 % (40-75); PLATELET COUNT 193 X10e3 (140-420); RED BLOOD COUNT 4.84 X10e (3.90-5.60); WHITE BLOOD COUNT 3.3 X10e3 (4.0-10.5)
[2016-11-11 12:35] LABS: ALBUMIN SERUM 3.7 g/dL (3.5-5.0); BILIRUBIN,TOTAL 0.5 mg/dL (0.2-2.0); BUN/CREATININE RATIO 8.75; CALCIUM SERUM 9.1 mg/dL (8.4-10.2); CREATININE SERUM 0.8 mg/dL (0.6-1.4); GLOM FILT RATE Estimated 148.1 mL/min (>60); POTASSIUM 4.2 mmol/L (3.5-5.1); PROTEIN TOTAL SERUM 6.6 g/dL (6.0-8.3)
[2016-11-11 12:48] LABS: DIFF IND NO
[2016-11-12 10:10] LABS: URINE APPEARANCE CLEAR; URINE BILIRUBIN NEG (NEG); URINE BLOOD NEG (NEG); URINE COLOR YELLOW; URINE GLUCOSE NEG (NEG); URINE KETONE NEG (NEG); URINE LEUKOCYTE ESTERASE NEG (NEG); URINE NITRATE NEG (NEG); URINE PROTEIN NEG (NEG); URINE UROBILINOGEN 0.2 MG/DL (NEG)
== END 2016-11-12 10:45 | disposition home or self-care (01) | DRG 885 ==
LOC: P2S 09:18
PROVIDERS: Psychiatry & Neurology Psychiatry
DX: F31.9 Bipolar disorder, unspecified (principal); E66.01 Morbid (severe) obesity due to excess calories; R45.851 Suicidal ideations; H40.9 Unspecified glaucoma; F70 Mild intellectual disabilities
CPT/HCPCS: 80053; 81003; 85025